=== PATIENT | female | born 1995 | race Caucasian/White ===

== ENCOUNTER → 2019-07-21 | Outpatient (CLI) | payer BC | LOC: LAB 14:08 | DX: Z11.59 Encounter for screening for other viral diseases (principal) | CPT/HCPCS: 36415 ==

== ENCOUNTER → 2019-08-24 | Outpatient (CLI) | payer BC ==
[~2019-08-24] MED LIST: GADOBUTROL 7.5 MMOL/7.5 ML (GADAVIST) VIAL IV ONE
--- NOTE | 2019-08-24 14:06 | Diagnostic Imaging Report ---
INDICATION: Fatigue and headaches. COMPARISON: None TECHNIQUE: Routine pre and post contrast enhanced multiplanar, multisequence MRI of the head was obtained. FINDINGS: The ventricles and the cortical sulci are age appropriate. There is no midline shift or mass effect identified. There is no acute infarction. No intraparenchymal or extra-axial hemorrhage or fluid collection is identified. No other focal parenchymal abnormality is seen. There is no abnormal enhancement seen after the administration of gadolinium. No focal mass is present. The midline craniocervical anatomy is unremarkable. The major expected intracranial flow voids are seen. There are no focal calvarial lesions. Visualized paranasal sinuses are clear. The mastoid air cells are unremarkable. IMPRESSION: 1. No acute intracranial abnormalities. No acute infarction, hemorrhage or focal intra-axial mass. Dictated by: Dictated on workstation # [id number]
== END ==
LOC: RAD 12:44
PROVIDERS: ATTEND Family Medicine
DX: R51 Headache (principal); R53.83 Other fatigue
CPT/HCPCS: 70553

== ENCOUNTER 2019-08-28 12:43 | Day surgery (SDC) | payer BC ==
[~2019-08-28] VITALS: Ht 167 cm; Wt 75.9 kg
[2019-08-28 13:04] VITALS: BP 125/85
--- NOTE | 2019-08-28 13:10 | NUR ---
DR. GARCIA IN THE ROOM TO TALK WITH THE PATIENT ABOUT THE PROCEDURE.
--- NOTE | 2019-08-28 13:17 | NUR ---
TIME OUT PERFORMED. 1321: LOCAL PER DR. GARCIA. 1324: OPENING PRESSURE OF 16. 1326: TUBE 1 OBTAINED. 1328: TUBE 2 OBTAINED. 1329: TUBE 3 OBTAINED. 1330: TUBE 4 OBTAINED. 1340: PATIENT SIPPING ON A COCA-COLA. DENIES ANY DISCOMFORT. VSS. 36.7, 70, 18, 115/76, 97% ON ROOM AIR.
--- NOTE | 2019-08-28 13:53 | Anesthesia-Procedure Note ---
Procedures/Interventions Procedure Start/Stop/Diagnosis Date of Procedure: Aug 28, 2019 Start Time: 13:21 Referring Physician: Dr Cunha Preprocedural Diagnosis: Headache, Fatigue Brief History Anesthesia Note ([id number]) Pt has been having headaches and fatigue for approximately that past 3 months. She was sent here for a diagnostic lumbar puncture. Recent CBC showed a normal platelet count and MRI Head showed no contraindication to LP. +/- discussed and consent signed. Stop Time: 13:35 Postprocedural Diagnosis: Same Lumbar Puncture Discussed Risk,Benefits: Yes Patient Consents: Yes Position: L3-4, Left Sterile Technique: Yes (ChloraPrep) Opening Pressure: 16 cm CSF Fluid Color: Clear Spinal Needle Used: 22g Clip 3 1/2 inch Procedure Notes See above for procedure details. + CSF on first pass. Neg heme/paresthesias. Needle withdrawn after ~3 mL CSF times 4 vials were drawn off and sent to lab per Dr. Cunha's order. Sterile bandage applied. Pt tolerated the procedure well. Signs and symptoms of a post-dural puncture headache were discussed with the patient, as well as conservative treatment and an epidural blood patch if necessary. Pt understood and was told to call Dr. Cunha or myself with any questions or concerns. She is to follow up with Dr. Cunha once lab results are back. We will be available if needed. ROB GARCIA DO Aug 28, 2019 13:53
[2019-08-28 14:18] LABS: CSF GLUCOSE 54 MG/DL (50-80); CSF TOTAL PROTEIN 27 MG/DL (15-40)
--- OUTSIDE RECORDS SUMMARY | 2019-08-28 15:22 | XMS REPORT ---
Author Author [facility] M edical Staff, LACY Rivers Organization [facility] Address [address] [place] [address] Phone [phone] Summary purpose CCDA Sent to [facility] Chief Complaint and Reason for Visit Admit Diagnosis 1 JOINT PAIN-SHLDER Problem list No authorized problems tracked for continuity of care are available for this vis it. Encounters No authorized problems tracked for encounter diagnoses are available for this vi sit. Medications No home medications recorded for this patient visit Allergies, adverse reactions, alerts No allergy information is available for this patient. Immunizations No immunizations recorded for this patient visit Relevant diagnostic tests and/or laboratory data No authorized results are available for this patient visit History of procedures Procedure Code Code Type Description Date Performed Performing Physician 11560 CPT-4 X-RAY EXAM OF SHOULDER 05-10-2014 DYLAN WHEELER Functional status No functional or cognitive status observations are available for this visit. Vital signs No authorized vital signs are available for this visit. Social history No Social History or smoking status observations were recorded for this visit. ( Unknown if ever smoked.) Treatment Plan No treatment plan text is available for this visit. Hospital discharge instructions No discharge instruction text is available for this visit.
--- OUTSIDE RECORDS SUMMARY | 2019-08-28 15:22 | XMS REPORT | Continuity of Care Document ---
Author Organization Unknown Address Unknown Phone Unavailable Allergies Active Description Code Type Severity Reaction Onset Reported/Identified Relationship to Patient Clinical Status Yes athletic tape [id number] Mis cellaneous Allergy Moderate N/A Yes No Known Drug Allergies [id number] Drug Allergy Unknown N/A 08/24/2019 Yes latex [id number] Drug Allergy Unknown RASH 08/28/2019 Medications There is no data. Problems Date Dx Coded Attending Type Code Diagnosis Diagnosed By 05/12/2016 Denise Tidwell 465.8 URI 07/24/2019 EFRAÍN HARO MD Ot Z11.59 ENCOUNTER FOR SCREENING FOR OTHER VIRAL 07/26/2019 EFRAÍN HARO MD Ot Z11.59 ENCOUNTER FOR SCREENING FOR OTHER VIRAL 07/26/2019 KIMMIE HARO MDUWATOCLAIRE Ot Z11.59 ENCOUNTER FOR SCREENING FOR OTHER VIRAL 08/18/2019 CLYDE HARO MDATOCLAIRE Ot Z11.59 ENCOUNTER FOR SCREENING FOR OTHER VIRAL 08/18/2019 CLYDE HARO MDATOCLAIRE Ot Z11.59 ENCOUNTER FOR SCREENING FOR OTHER VIRAL 08/22/2019 CLYDE HARO MDATOCLAIRE Ot Z11.59 ENCOUNTER FOR SCREENING FOR OTHER VIRAL 08/25/2019 CLYDE HARO MDATOCLAIRE Ot Z11.59 ENCOUNTER FOR SCREENING FOR OTHER VIRAL Procedures Code [place] [address] Ther apeutic, prophylactic or diagnostic injection; subcutaneous or intramuscular 05/12/2016 59469 Offi ce/outpatient visit; established patient, level 3 05/12 Results Test Result Range COVID-19 ([facility]) - 07/13/19 10:51 COVID-19 IgG Only SO - 07/21/19 14:29 Coronavirus Ab [Units/volume] in Serum Negative Negative Cerebrospinal fluid glucose measurement (mass/volume) - 08/28/19 13:30 Cerebrospinal fluid glucose measurement (mass/volume) 54 mg/dL 50-80 Cerebrospinal fluid protein measurement (mass/volume) - 08/28/19 13:30 Cerebrospinal fluid protein measurement (mass/volume) 27 mg/dL 15-40 Encounters ACCT No. Visit Date/Time Discharge Status Pt. Type Provider Facility Loc./Unit Complaint [id number] 05/12/2016 11:50:06 7 12:03:39 DIS Outpatient Denise Tidwell [facility] [id number] 07/13/2019 10:00:00 07/13/2019 23:59: 59 CLS [facility] [id number] 07/13/2019 10:00:00 Document Registration [id number] 08/28/2019 12:43:00 13:55:00 DIS Outpatient ALEXANDR SARAVIA MD [facility] HEADACHE, FATIGUE [id number] 08/24/2019 12:44:00 23:59:59 CLS Outpatient ALEXANDR SARAVIA MD [facility] RAD HEADACHE,FATIGUE [id number] 07/21/2019 14:08:00 23:59:59 CLS Outpatient EFRAÍN HARO MD [facility] LAB COVID-19 ANTIBODY TEST
[2019-08-28 15:27] LABS: APPEARANCE,CSF CLEAR; COLOR,CSF COLORLESS; RED BLOOD CELL,CSF 279 CELLS (0-0); WHITE BLOOD CELL,CSF 0 CELLS (0-5)
[2019-08-28 15:29] LABS: CSF TUBE NUMBER 4
== END 2019-08-28 13:55 | disposition home or self-care (01) ==
LOC: SDC 12:43
PROVIDERS: ATTEND Family Medicine
DX: R51 Headache (principal); R53.83 Other fatigue
CPT/HCPCS: 36415; 82945; 83916; 84157; 89051

== ENCOUNTER 2019-09-04 10:48 | Outpatient (CLI) | payer BC ==
[2019-09-04 11:04] VITALS: BP 115/92
--- NOTE | 2019-09-04 12:31 | Anesthesia-Procedure Note ---
Procedures/Interventions Procedure Start/Stop/Diagnosis Date of Procedure: Sep 04, 2019 Start Time: 11:10 Referring Physician: Dr Jose Luis Cunha Preprocedural Diagnosis: Headache, S/P lumbar puncture Brief History Pt was sent here for Dx Lumbar Puncture one week ago (08-28-19) for a several month history of headaches and fatigue. The lumbar puncture went well, without difficulty. I discussed the possibility of a PDPH and described to her the symptoms should one develop. She understood and said she would call if necessary. Wednesday evening she noticed a classic, postural headache in the evening and the first several days it was not severe and was treated with caffeine and increased fluids, as we had discussed. Towards the end of the week and over the weekend, the headache continued to progress throughout the day and the evenings were the worst, no longer improving with fluids, caffeine and tylenol/ibuprofen. She called this morning and I discussed again with her the procedure of an epidural blood patch and that since her symptoms were consistent with that of a PDPH and no longer relieved with conservative measures, definitive treatment with an epidural blood patch was indicated should she wish to proceed. She understood and wanted to have the procedure done. Stop Time: 11:25 Postprocedural Diagnosis: Same Lumbar Puncture Discussed Risk,Benefits: Yes Patient Consents: Yes Position: L4-5, Sitting Sterile Technique: Yes (x 2 locations) Opening Pressure: N/A Fluid Color: N/A Spinal Needle Used: Other (17 G Tuohy for epidural blood patch) Procedure Notes See above for procedure details. Lorena Leblanc CRNA assisted me with the sterile blood draw after ChloraPrep. After a sterile P/D of her low back, I used a 17 G Tuohy needle to find the epidural space with LOR2NS technique. Space was located with ease, neg heme/CSF/paresthesias. 20 mL of the patients blood was injected after good sterile technique was used. She tolerated the full 20 mL of blood without increased pressure. A sterile bandage was applied and the patient returned to the supine position for ~30 minutes. She was instructed to rest today and avoid heavy lifting, bending, twisting or straining for the 24-48 if possible for the best results of headache resolution. We also discussed the possibility of needing a second epidural blood patch if complete resolution was not achieved. Again, this would depend on her symptoms and how well she tolerated any headache that remained. She understood and said she would call if necessary. She was discharged to home in stable condition. ROB GARCIA DO Sep 04, 2019 12:31
== END 2019-09-04 11:55 | disposition home or self-care (01) ==
LOC: SDC 10:48
PROVIDERS: ATTEND Anesthesiology
DX: G89.18 Other acute postprocedural pain (principal)

== ENCOUNTER 2019-11-06 08:30 | Outpatient (RCR) | payer BC | END 2020-02-04 | disposition home or self-care (01) | LOC: CARD 08:30 | PROVIDERS: ATTEND Nurse Practitioner Family | DX: R00.0 Tachycardia, unspecified (principal); Z20.828 Contact with and (suspected) exposure to other viral communicable diseases | CPT/HCPCS: 93225; 93226 ==

== ENCOUNTER → 2019-11-15 | Outpatient (CLI) | payer BC ==
--- NOTE | 2019-11-15 20:14 | NUR ---
Notified patient and health dept of positive COVID, questions answered and quarantine explained.
== END ==
LOC: LABNPT 05:57
PROVIDERS: ATTEND Nurse Practitioner Family
DX: U07.1 COVID-19 (principal)
CPT/HCPCS: 87635

== ENCOUNTER → 2019-12-19 | Outpatient (CLI) | payer BC ==
--- NOTE | 2019-12-19 12:18 | Diagnostic Imaging Report ---
INDICATION: Numbness in the extremities as well as neck pain. TIME OF EXAM: 11:15 AM. FINDINGS: The curvature and alignment of the cervical spine are normal. The vertebral body heights and disc spaces are well-maintained. No fracture or subluxation is identified. The prevertebral tissues are normal. The odontoid is intact. IMPRESSION: No acute bony abnormality is detected. Dictated by: Dictated on workstation # [id number]
== END ==
LOC: RAD 11:04
PROVIDERS: ATTEND Family Medicine
DX: M54.2 Cervicalgia (principal); R20.0 Anesthesia of skin
CPT/HCPCS: 72040

== ENCOUNTER 2020-02-01 15:10 | Outpatient (RCR) | payer BC | END 2020-02-14 10:30 | disposition home or self-care (01) | PROVIDERS: ATTEND Family Medicine | DX: M54.2 Cervicalgia (principal); M54.6 Pain in thoracic spine; U07.1 COVID-19; R20.2 Paresthesia of skin ==